=== PATIENT | male | born 1980 | race Caucasian/White ===

== ENCOUNTER → 2020-01-06 | Outpatient (CLI) | payer OTHER ==
--- NOTE | 2020-01-06 16:58 | EXE ---
[place] [address] STRESS ECHOCARDIOGRAM Name: LEIGH BARRON Room: [facility]#: [id number] Admission: 01/06/20 Attend Phys: Jose Francisco To MD Discharge: Date of : 76 Date of Service: 01/06/20 1658 Report #: [id number] THIS REPORT FOR: cc: Zoran Hauser Adam J DO Blick, David R. MD [facility] ~ APPROVED REPORT Study performed: 01/06/2020 15:14:14 Exam: Stress Echocardiogram Indication: Chest pain , Dyspnea, Abnormal EKG Patient Location: Out-Patient Stress Nurse: Cass Candelaria RN Supervising Physician: Jose Francisco To MD Ht: 5 ft 6 in HR: 88 bpm BP: 120/82 mmHg Medical History Cardiac Risk Factors: Hyperlipidemia,, Tobacco History (Former), FHX of CAD Procedure The patient underwent an Exercise Stress Test using the Ramana Protocol. Blood pressure, heart rate, and EKG were monitored. An Echocardiogram was performed by patient care technician in four stages in quad fashion. At peak stress, four selected images were obtained and placed side by side with resting images for comparison. Stress Test Details Stress Test: Exercise stress testing was performed using a Ramana protocol. HR Resting HR: 88 bpm Max Heart Rate (APMHR): 179 bpm Max HR Achieved: 171 bpm Target HR (85% APMHR): 152 bpm % of APMHR: 95 Recovery HR: 105 bpm HR response to stress: Normal HR response to stress BP Resting BP: 120/82 mmHg Max BP: 225/58 mmHg Recovery BP: 139/66 [place] [address] STRESS ECHOCARDIOGRAM Name: LEIGH BARRON Room: [facility]#: [id number] Admission: 01/06/20 Attend Phys: Jose Francisco To MD Discharge: Date of : 76 Date of Service: 01/06/20 1658 Report #: [id number] BP response to stress: Normal blood pressure response to stress. ECG Resting ECG: Sinus Rhythm, NSSTT changes Stress ECG: Sinus Rhythm, nonspecific ST-T abnormalities ST Change: Upsloping ST depression Maximum ST Deviation: 1 mm Arrhythmia: None Recovery ECG: Sinus Rhythm, nonspecific ST-T abnormalities Recovery ST Change: Upsloping ST depression Recovery ST Deviation: 0.5 mm Clinical Reason for Termination: Completed protocol Exercise duration: 10 min 02 sec Highest Stage Achieved: Stage 3: 3.4 mph at 14% grade. Exercise capacity: 12.11 METs Pre-Stress Echo The resting Echocardiogram showed normal left ventricular contractility with an estimated Ejection Fraction of about 55-60%. Post-Stress Echo The stress Echocardiogram showed normalnormal left ventricular contractility with an estimated Ejection Fraction of about 65-70%. Compared to rest, there were no stress-induced wall motion abnormalities. Conclusion Clinical Response: Non-ischemic Exercise Capacity: Average Stress ECG Response: Indeterminant Stress Echo Images: Non-ischemic low risk stress echo for predicting future cardiac events Other Information Study Quality: Fair <Conclusion> low risk stress echo for predicting future cardiac events <ELECTRONICALLY SIGNED> By: Jose Francisco To MD, [facility] 01/06/20 1658 57 Jose Francisco To MD, [facility] /INF
== END ==
LOC: M.CRD 14:49
PROVIDERS: ATTEND Internal Medicine Cardiovascular Disease
DX: R94.31 Abnormal electrocardiogram [ECG] [EKG] (principal)